=== PATIENT | female | born 1995 | race African-American/Black ===

== ENCOUNTER 2025-05-12 13:51 | Emergency (ER) | payer MEDICAID, OTHER ==
[~2025-05-12] VITALS: Ht 162.6 cm; Wt 65.9 kg
[2025-05-12] MEDS ORDERED: RIZA5TAB2 PO (14:00)
[2025-05-12] MEDS ORDERED: ATEN25TA PO (14:00)
[2025-05-12] MEDS ORDERED: SERT-141 PO (14:00)
[2025-05-12] MEDS ORDERED: MAGN400T2 PO (14:00)
[2025-05-12] MEDS ORDERED: VITA1TAB82 PO (14:00)
[2025-05-12] MEDS: ASPIRIN 81 MG CHEWABLE TABLET PO ONE (16:00)
[2025-05-12 16:08] LABS: BASO # 0.0 10^3/uL (0.0-0.2); BASO % 0.7 % (0.0-1.0); EOS # 0.1 10^3/uL (0.0-0.5); EOS % 1.1 % (0.0-3.0); LYMPH # 1.6 10^3/uL (1.5-5.0); LYMPH % 25.7 % (24.0-44.0); MONO # 0.7 10^3/uL (0.0-0.8); MONO % 12.0 % (2.0-8.0); NEUTROPHILS # 3.7 10^3/uL (1.5-8.5); NEUTROPHILS % 60.3 % (36.0-66.0); PLATELET COUNT, AUTOMATED 207 10^3/uL (150-450)
[2025-05-12 16:31] VITALS: BP 134/74; TEMP 98.3; O2SAT 99
[2025-05-12 16:43] LABS: CALCIUM LEVEL 9.3 MG/DL (8.5-10.1); CARBON DIOXIDE LEVEL 27 MMOL/L (20-31); CHLORIDE LEVEL 104 MMOL/L (98-107); CK-MB VALUE MASS < 1.0 NG/ML (<3.6); CREATININE FOR GFR 0.66 MG/DL (0.55-1.30); GLOMERULAR FILTRATION RATE > 90.0 (>60); POTASSIUM SERUM 4.3 MMOL/L (3.5-5.1); SODIUM LEVEL 140 MMOL/L (136-145)
[2025-05-12 16:48] LABS: CPK CREATINE PHOSPHOKINASE 140 U/L (34-145)
== END 2025-05-12 16:54 | disposition home or self-care (01) ==
LOC: M ED 13:51
DX: R07.89 Other chest pain (principal); I10 Essential (primary) hypertension

== ENCOUNTER → 2025-06-16 | Outpatient (REF) ==
[~2025-06-16] MED LIST: ATEN25TA PO; MAGN400T2 PO; RIZA5TAB2 PO; SERT-141 PO; VITA1TAB82 PO
== END ==
LOC: M EMP 14:14
PROVIDERS: ATTEND Family Medicine
DX: Z01.89 Encounter for other specified special examinations (principal)